=== PATIENT | female | born 1990 | race Two or more races ===

== ENCOUNTER 2016-09-06 04:21 | Observation (INO) | payer MEDICAID ==
--- NOTE | 2016-09-06 04:32 | ER Document Report ---
ED GI/ - General Mode of Arrival: Ambulatory Information source: Patient, [facility] Records TRAVEL OUTSIDE OF THE [place] IN LAST 30 DAYS: Yes COUNTRY TRAVELED TO/FROM: [place] <LIBRADO WILLARD - Last Filed: 09/06/16 08:03> <RASHID MEDINA - Last Filed: 09/06/16 09:28> - General Stated Complaint: BLEEDING Time Seen by Provider: 09/06/16 04:24 Notes: This 25-year-old female patient comes emergency room complaining of sudden onset of heavy vaginal bleeding about 20 minutes prior to arrival. She reports she has had some pelvic cramping off and on for a few days. Cramping began again this evening. She was [facility] the [facility] 2-3 days ago for the cramping and had a negative test. Her last menstrual period started 2 days ago and was on time. (LIBRADO WILLARD) - Related Data Allergies/Adverse Reactions: No Known Allergies Allergy (Verified 03/25/15 04:21) Past Medical History - General Information source: Patient, [facility] Records - Social History Smoking Status: Never Smoker Cigarette use (# per day): No Chew tobacco use (# tins/day): No Smoking Education Provided: No Frequency of alcohol use: Social Drug Abuse: None Occupation: Unemployed Family History: Reviewed & Not Pertinent - Medical History Medical History: Negative Past Surgical History: Reports: Hx Section - x2 - Immunizations Hx Diphtheria, Pertussis, Tetanus Vaccination: Yes <LIBRADO WILLARD - Last Filed: 09/06/16 08:03> Review of Systems - Review of Systems Constitutional: No symptoms reported EENT: No symptoms reported Cardiovascular: No symptoms reported Respiratory: No symptoms reported Gastrointestinal: See HPI Genitourinary: See HPI Female Genitourinary: See HPI Musculoskeletal: No symptoms reported Skin: No symptoms reported Hematologic/Lymphatic: No symptoms reported Neurological/Psychological: No symptoms reported <LIBRADO WILLARD - Last Filed: 09/06/16 08:03> Physical Exam - General General appearance: Alert, Anxious In distress: Moderate - HEENT Head: Normocephalic, Atraumatic Eyes: Normal Pupils: PERRL Neck: Normal - Respiratory Respiratory status: No respiratory distress Breath sounds: Normal - Cardiovascular Rhythm: Regular Heart sounds: Normal auscultation Murmur: No - Abdominal Inspection: Normal Bowel sounds: Normal Tenderness: Tender - Back Back: Normal - Extremities General upper extremity: Normal inspection General lower extremity: Other - Fresh blood had been running down both legs. - Neurological Neuro grossly intact: Yes - Psychological Associated symptoms: Normal affect, Normal mood - Skin Skin Temperature: Warm Skin Moisture: Dry Skin Color: Normal <LIBRADO WILLARD - Last Filed: 09/06/16 08:03> Course - Laboratory Result Diagrams: 09/06/16 04:25 09/06/16 05:15 - Transfer of Care Care transferred to following provider: Dr. Cruz <LIBRADO WILLARD - Last Filed: 09/06/16 08:03> - Laboratory Result Diagrams: 09/06/16 09:03 09/06/16 05:15 - Diagnostic Test Radiology reviewed: Image reviewed, Reports reviewed <RASHID MEDINA - Last Filed: 09/06/16 09:28> - Re-evaluation Re-evalutation: 09/06/16 08:03 I ordered D5 LR fluids due to the patient's low serum CO2 suggesting metabolic acidosis, and slightly low potassium and blood sugar. After this fluid was ordered, the nurse informed me she had received 2-1/2 L of normal saline at this point. I had looked in the orders prior to ordering the D5 LR and did not see where saline had ever been ordered or given. I requested the second half of the third liter of normal saline be stopped and the D5 LR be started. (LIBRADO WILLARD) 09/06/16 09:27 Patient's hemoglobin has dropped down to 7.2, I ordered for transfusion of blood , I spoke with Dr. Nielsen will admit the patient. She did become hypotensive and was given fluids in the meantime. Emergent blood has been ordered ( RASHID MEDINA) - Vital Signs Vital signs: Temp Pulse Resp BP Pulse Ox 16 100/65 100 09/06/16 09:02 09/06/16 09:02 09/06/16 09:02 - Laboratory Laboratory results interpreted by me: 09/06/16 09/06/16 09/06/16 04:25 05:15 05:15 WBC 11.2 H RBC Hgb 11.2 L Hct 34.3 L RDW 15.0 H Plt Count Chloride 113 H Carbon Dioxide 16 L Calcium 7.1 L Alkaline Phosphatase 24 L Total Protein 4.8 L Albumin 2.5 L Beta HCG, Quant 15.05 H Urine Ketones Urine Blood Ur Leukocyte Esterase Crossmatch See Detail 09/06/16 09/06/16 06:21 09:03 WBC RBC 2.53 L Hgb 7.2 L D Hct 21.5 L RDW Plt Count 138 L Chloride Carbon Dioxide Calcium Alkaline Phosphatase Total Protein Albumin Beta HCG, Quant Urine Ketones TRACE H Urine Blood SMALL H Ur Leukocyte Esterase TRACE H Crossmatch - Transfer of Care Notes: 09/06/16 07:41 Patient is pending ultrasound. Repeat Chem-12 will be done after ultrasound. ( LIBRADO WILLARD) Critical Care Note <LIBRADO WILLARD - Last Filed: 09/06/16 08:03> - Critical Care Note Total time excluding time spent on procedures (mins): 33 <RASHID MEDINA - Last Filed: 09/06/16 09:28> - Critical Care Note Comments: 33 minutes of critical care time spent in direct contact evaluating and reevaluating the patient, treating symptoms, reviewing labs and studies and speaking with family and consultants excluding any procedures (RASHID MEDINA ) Discharge <LIBRADO WILLARD - Last Filed: 09/06/16 08:03> - Discharge Admitting Provider: [facility] Unit Admitted: Surgical Floor <RASHID MEDINA - Last Filed: 09/06/16 09:28> - Discharge Clinical Impression: Vaginal bleeding in patient at less than 20 weeks gestation, Pelvic cramping, Hypoalbuminemia, Metabolic acidosis, Acute blood loss anemia Anemia Qualifiers: Anemia type: unspecified type Qualified Code(s): D64.9 - Anemia, unspecified Hypotension Qualifiers: Hypotension type: unspecified hypotension type Qualified Code(s): I95.9 - Hypotension, unspecified Condition: Stable Disposition: ADMITTED INPATIENT Referrals: JAIR BRICE MD [Primary Care Provider] - Follow up as needed
[2016-09-06 04:47] LABS: ABSOLUTE EOSINOPHILS # (AUTO) 0.1 10^3/uL (0.0-0.6); ABSOLUTE LYMPHOCYTES (AUTO) 4.3 10^3/uL (0.5-4.7); ABSOLUTE MONOCYTES (AUTO) 0.8 10^3/uL (0.1-1.4); ABSOLUTE NEUT (AUTO) 6.1 10^3/uL (1.7-8.2); BASOPHILS % (AUTO) 0.2 % (0-2); EOSINOPHILS % (AUTO) 0.5 % (0-6); HEMATOCRIT 34.3 % (36.0-47.0); HEMOGLOBIN 11.2 g/dL (12.0-15.5); HGB HCT DIFFERENCE -0.7; LYMPHOCYTES % (AUTO) 38.2 % (13-45); MEAN CORPUSCULAR HGB CONC 32.5 g/dL (32.0-36.0); MEAN CORPUSCULAR VOLUME 86 fl (80-97); MONOCYTES % (AUTO) 6.9 % (3-13); RED BLOOD COUNT 3.99 10^6/uL (3.72-5.28); SEGMENTED NEUTROPHILS % (AUTO) 54.2 % (42-78); WHITE BLOOD COUNT 11.2 10^3/uL (4.0-10.5)
[2016-09-06 05:46] LABS: ALANINE AMINOTRANSFERASE 21 U/L (9-52); ALBUMIN 2.5 g/dL (3.5-5.0); ALKALINE PHOSPHATASE 24 U/L (38-126); ANION GAP 11 (5-19); ASPARTATE AMINO TRANSFERASE 17 U/L (14-36); BILIRUBIN,DIRECT 0.3 mg/dL (0.0-0.4); BILIRUBIN,TOTAL 0.4 mg/dL (0.2-1.3); BLOOD UREA NITROGEN 8 mg/dL (7-20); CALCIUM 7.1 mg/dL (8.4-10.2); CARBON DIOXIDE 16 mmol/L (22-30); CHLORIDE 113 mmol/L (98-107); CREATININE RESULT 0.52 mg/dL (0.52-1.25); GLUCOSE 76 mg/dL (75-110); POTASSIUM 3.6 mmol/L (3.6-5.0); SODIUM 139.6 mmol/L (137-145); TOTAL PROTEIN 4.8 g/dL (6.3-8.2)
[2016-09-06] MEDS ORDERED: DEXTROSE 5%-LACTATED RINGERS 1,000 ML IV ONE (06:28)
[2016-09-06 06:41] LABS: APPEARANCE,URINE CLEAR; BILIRUBIN,URINE NEGATIVE (NEGATIVE); GLUCOSE, URINE NEGATIVE (NEGATIVE); KETONES,URINE TRACE mg/dL (NEGATIVE); LEUKOCYTE ESTERASE,URINE TRACE (NEGATIVE); NITRITE,URINE NEGATIVE (NEGATIVE); PROTEIN,URINE NEGATIVE (NEGATIVE); UROBILINOGEN,URINE NEGATIVE mg/dL (<2.0)
[2016-09-06 07:50] LABS: ADD ON TESTING BLD IN LAB ACKNOWLEDGE
[2016-09-06] MEDS ORDERED: ONDANSETRON HCL INJ/PF 4 MG/2 ML SDV IV ONE (08:00)
[2016-09-06] MEDS ORDERED: MORPHINE SULFATE 10 MG/ML INJ IV ONE (08:00)
[2016-09-06 08:06] LABS: MAGNESIUM 1.7 mg/dL (1.6-2.3)
[2016-09-06 08:09] LABS: PARTIAL THROMBOPLASTIN TIME 28.7 SEC (23.5-35.8); PROTHROMBIN TIME 15.4 SEC (11.4-15.4)
[2016-09-06 08:10] LABS: FIBRINOGEN 222 mg/dL (209-497)
--- NOTE | 2016-09-06 09:11 | RADIOLOGY REPORT (SQ) ---
EXAM DESCRIPTION: U/S OB TRANSVAGINAL W/O DOP COMPLETED DATE/TIME: 09/06/2016 9:03 am REASON FOR STUDY: pelvic pain, heavy vag bleeding COMPARISON: None. TECHNIQUE: Transvaginal and transabdominal static and realtime grayscale images acquired of the pelv is. Additional selected spectral and color Doppler images recorded. All images stored on PACs. bHC.05 LIMITATIONS: None. FINDINGS: UTERUS: No visualized intrauterine . Thickened heterogeneous endometrium measuri ng 31 mm. RIGHT ADNEXA: Normal ovary with normal vascular flow. No adnexal free fluid. No adnexal masses. LEFT ADNEXA: Normal ovary with normal vascular flow. No adnexal free fluid. No adnexal masses. FREE FLUID: None. OTHER: No other significant finding. IMPRESSION: NO VISUALIZED INTRA- OR EXTRAUTERINE . bHCG LEVEL TOO LOW TO EXPECT VISUALIZATION OF HOWEVER GIVEN THE MARKEDLY THICKENED ENDOMETR IUM AND HISTORY OF ACTIVE BLEEDING FINDINGS ARE CONCERNING FOR FAILED INTRAUTERINE . ECTOPIC CANNOT BE EXCLUDED. FOLLOW-UP ULTRASOUND AND SERIAL BHCG LEVELS STRONGLY RECOMMENDED TO ACCURATELY ASSESS STATU S. TECHNICAL DOCUMENTATION: JOB ID: [id number]- All Rights Reserved
[2016-09-06 09:16] LABS: ABSOLUTE LYMPHOCYTES (AUTO) 1.3 10^3/uL (0.5-4.7); ABSOLUTE MONOCYTES (AUTO) 0.3 10^3/uL (0.1-1.4); ABSOLUTE NEUT (AUTO) 5.8 10^3/uL (1.7-8.2); BASOPHILS % (AUTO) 0.1 % (0-2); EOSINOPHILS % (AUTO) 0.1 % (0-6); HEMATOCRIT 21.5 % (36.0-47.0); HGB HCT DIFFERENCE 0.1; LYMPHOCYTES % (AUTO) 17.6 % (13-45); MEAN CORPUSCULAR HEMOGLOBIN 28.3 pg (27.0-33.4); MEAN CORPUSCULAR HGB CONC 33.3 g/dL (32.0-36.0); MEAN CORPUSCULAR VOLUME 85 fl (80-97); MONOCYTES % (AUTO) 4.4 % (3-13); RED BLOOD COUNT 2.53 10^6/uL (3.72-5.28); SEGMENTED NEUTROPHILS % (AUTO) 77.8 % (42-78); WHITE BLOOD COUNT 7.5 10^3/uL (4.0-10.5)
[2016-09-06 09:20] LABS: HEMOGLOBIN 7.2 g/dL (12.0-15.5)
[2016-09-06] MEDS ORDERED: NORMAL SALINE 250 ML IV PRN ×2 (09:21)
[2016-09-06 09:27] LABS: ALANINE AMINOTRANSFERASE 15 U/L (9-52); ALBUMIN 2.6 g/dL (3.5-5.0); ALKALINE PHOSPHATASE 23 U/L (38-126); ANION GAP 8 (5-19); ASPARTATE AMINO TRANSFERASE 15 U/L (14-36); BILIRUBIN,DIRECT 0.2 mg/dL (0.0-0.4); BILIRUBIN,TOTAL 0.4 mg/dL (0.2-1.3); BLOOD UREA NITROGEN 7 mg/dL (7-20); CALCIUM 7.2 mg/dL (8.4-10.2); CARBON DIOXIDE 19 mmol/L (22-30); CHLORIDE 111 mmol/L (98-107); CREATININE RESULT 0.44 mg/dL (0.52-1.25); GLUCOSE 110 mg/dL (75-110); POTASSIUM 3.8 mmol/L (3.6-5.0); SODIUM 138.2 mmol/L (137-145); TOTAL PROTEIN 4.8 g/dL (6.3-8.2)
--- NOTE | 2016-09-06 10:18 | PDOC CONSULTATION ---
Consultation Consult Date: 09/06/16 Attending physician:: UYEN RIVERA Consult reason:: BHCG of 15. excessive vaginal bleeding with 4 point hgb drop in 5 hours. History of Present Illness Admission Date/PCP: 09/06/16 09:57 JAIR BRICE MD Patient complains of: had cramping and mild bleeding that started 2 days ago. this am began with rapid bleeding with clots and increased cramping. History of Present Illness: JOSIE ANN is a 25 year old female as above Past Medical History LMP: 09/03/2016 Menses: regular Gynecological Infection: No Obstetrical History: none - c/section x 2. PP hemorrhage x 1 with transfusion. Medical termination in January 2016 that resulted in hemorrhage and need for transfusion Social History Information Source: Patient Lives with: Family Smoking Status: Never Smoker Frequency of Alcohol Use: Occasional Hx Recreational Drug Use: No Family History Family History: Reviewed & Not Pertinent Parental Family History Reviewed: Yes Children Family History Reviewed: Yes Sibling(s) Family History Reviewed.: Yes Medication/Allergy Allergies/Adverse Reactions: No Known Allergies Allergy (Verified 03/25/15 04:21) Physical Exam - Physical Exam Vital Signs: Temp Pulse Resp BP Pulse Ox 98 F 15 96/58 L 97 09/06/16 09:59 09/06/16 09:57 09/06/16 09:57 09/06/16 09:57 General appearance: PRESENT: thin, well-developed, well-nourished Head exam: PRESENT: atraumatic Eye exam: PRESENT: conjunctiva pale Vascular exam: PRESENT: pallor GI/Abdominal exam: PRESENT: soft, tenderness - Gynecological Exam Labia: normal Urethra: normal Introitus: normal Perineum: normal Vagina: normal, other - mild/moderate blood. one small clot noted Cervix: normal, other - cervix closed. minimal blood from os noted. no active excessive bleeding Cervix: normal Uterus: normal Adhexa: normal Result Impressions: Obstetrics Ultrasound 09/06/16 06:27 IMPRESSION: NO VISUALIZED INTRA- OR EXTRAUTERINE . bHCG LEVEL TOO LOW TO EXPECT VISUALIZATION OF HOWEVER GIVEN THE MARKEDLY THICKENED ENDOMETRIUM AND HISTORY OF ACTIVE BLEEDING FINDINGS ARE CONCERNING FOR FAILED INTRAUTERINE . ECTOPIC CANNOT BE EXCLUDED. FOLLOW-UP ULTRASOUND AND SERIAL BHCG LEVELS STRONGLY RECOMMENDED TO ACCURATELY ASSESS STATUS. Assessment & Plan - Diagnosis (2) Hypotension Qualifiers: Hypotension type: unspecified hypotension type Qualified Code(s): I95.9 - Hypotension, unspecified - Time Time Spent: 30 to 50 Minutes Critical Time spent with patient: 15-24 minutes Anticipated discharge: Home - Plan Summary Plan Summary: d/w patient at time of exam in ER. If does well with transfusion and bleeding continues to be resolved, will discharge home with follow up in one week in my office. Will arrange for hematology follow up at that time as patient has history of transfusions associated with . This is very likely an early SAB and is resolving.
[2016-09-06 12:21] LABS: ABSOLUTE LYMPHOCYTES (AUTO) 1.8 10^3/uL (0.5-4.7); ABSOLUTE MONOCYTES (AUTO) 0.6 10^3/uL (0.1-1.4); ABSOLUTE NEUT (AUTO) 7.2 10^3/uL (1.7-8.2); BASOPHILS % (AUTO) 0.3 % (0-2); EOSINOPHILS % (AUTO) 0.1 % (0-6); HEMATOCRIT 32.3 % (36.0-47.0); HGB HCT DIFFERENCE -0.2; LYMPHOCYTES % (AUTO) 18.8 % (13-45); MEAN CORPUSCULAR HEMOGLOBIN 29.5 pg (27.0-33.4); MEAN CORPUSCULAR HGB CONC 33.3 g/dL (32.0-36.0); MEAN CORPUSCULAR VOLUME 88 fl (80-97); MONOCYTES % (AUTO) 6.2 % (3-13); RED BLOOD COUNT 3.65 10^6/uL (3.72-5.28); RED CELL DISTRIBUTION WIDTH 14.7 % (11.5-14.0); SEGMENTED NEUTROPHILS % (AUTO) 74.6 % (42-78); WHITE BLOOD COUNT 9.6 10^3/uL (4.0-10.5)
[2016-09-06 12:27] LABS: HEMOGLOBIN 10.7 g/dL (12.0-15.5)
[2016-09-06 12:35] LABS: ALANINE AMINOTRANSFERASE 25 U/L (9-52); ALBUMIN 2.3 g/dL (3.5-5.0); ALKALINE PHOSPHATASE 22 U/L (38-126); ANION GAP 6 (5-19); ASPARTATE AMINO TRANSFERASE 14 U/L (14-36); BILIRUBIN,DIRECT 0.1 mg/dL (0.0-0.4); BILIRUBIN,TOTAL 0.9 mg/dL (0.2-1.3); BLOOD UREA NITROGEN 4 mg/dL (7-20); CARBON DIOXIDE 17 mmol/L (22-30); CHLORIDE 116 mmol/L (98-107); CREATININE RESULT 0.35 mg/dL (0.52-1.25); GLUCOSE 76 mg/dL (75-110); POTASSIUM 3.5 mmol/L (3.6-5.0); SODIUM 138.7 mmol/L (137-145); TOTAL PROTEIN 4.5 g/dL (6.3-8.2)
[2016-09-06 12:43] LABS: CALCIUM 6.2 mg/dL (8.4-10.2)
--- NOTE | 2016-09-06 14:33 | PDOC H&P ---
History of Present Illness Admission Date/PCP: 09/06/16 09:57 JAIR BRICE MD Patient complains of: vaginal bleeding with excessive blood loss History of Present Illness: JOSIE ANN is a 25 year old female as above. Pls see earlier consult note for details Past Medical History LMP: 09/03/2016 Menses: regular Gynecological Infection: No Obstetrical History: none - c/section x 2. PP hemorrhage x 1 with transfusion. Medical termination in January 2016 that resulted in hemorrhage and need for transfusion Past Surgical History Past Surgical History: Reports: Section - x2 Social History Lives with: Family Smoking Status: Never Smoker Frequency of Alcohol Use: Occasional Hx Recreational Drug Use: No Family History Family History: Reviewed & Not Pertinent Parental Family History Reviewed: Yes Children Family History Reviewed: Yes Sibling(s) Family History Reviewed.: Yes Medication/Allergy Home Medications: No Home Medications 09/06/16 Allergies/Adverse Reactions: No Known Allergies Allergy (Verified 03/25/15 04:21) Physical Exam - Physical Exam Vital Signs: Temp Pulse Resp BP Pulse Ox 98.8 F 21 H 102/67 100 09/06/16 11:03 09/06/16 14:15 09/06/16 14:15 09/06/16 14:15 Intake & Output 09/05/16 09/06/16 09/07/16 06:59 06:59 06:59 Intake Total 600 Balance 600 - Gynecological Exam Labia: normal Urethra: normal Introitus: normal Perineum: normal Vagina: normal, other - mild/moderate blood. one small clot noted Cervix: normal, other - cervix closed. minimal blood from os noted. no active excessive bleeding Cervix: normal Uterus: normal Adhexa: normal Result Laboratory Results: 09/06/16 12:02 09/06/16 12:02 09/06/16 09/06/16 12:02 12:02 WBC 9.6 RBC 3.65 L Hgb 10.7 L D Hct 32.3 L MCV 88 MCH 29.5 MCHC 33.3 RDW 14.7 H Plt Count 125 L Seg Neutrophils % 74.6 Lymphocytes % 18.8 Monocytes % 6.2 Eosinophils % 0.1 Basophils % 0.3 Absolute Neutrophils 7.2 Absolute Lymphocytes 1.8 Absolute Monocytes 0.6 Absolute Eosinophils 0.0 Absolute Basophils 0.0 Sodium 138.7 Potassium 3.5 L Chloride 116 H Carbon Dioxide 17 L Anion Gap 6 BUN 4 L Creatinine 0.35 L Est GFR ( Amer) > 60 Est GFR (Non-Af Amer) > 60 Glucose 76 Calcium 6.2 L* Total Bilirubin 0.9 AST 14 ALT 25 Alkaline Phosphatase 22 L Total Protein 4.5 L Albumin 2.3 L Impressions: Obstetrics Ultrasound 09/06/16 06:27 IMPRESSION: NO VISUALIZED INTRA- OR EXTRAUTERINE . bHCG LEVEL TOO LOW TO EXPECT VISUALIZATION OF HOWEVER GIVEN THE MARKEDLY THICKENED ENDOMETRIUM AND HISTORY OF ACTIVE BLEEDING FINDINGS ARE CONCERNING FOR FAILED INTRAUTERINE . ECTOPIC CANNOT BE EXCLUDED. FOLLOW-UP ULTRASOUND AND SERIAL BHCG LEVELS STRONGLY RECOMMENDED TO ACCURATELY ASSESS STATUS. Assessment & Plan - Diagnosis (2) Hypotension Qualifiers: Hypotension type: unspecified hypotension type Qualified Code(s): I95.9 - Hypotension, unspecified - Time Time Spent: 30 to 50 Minutes Critical Time spent with patient: 15-24 minutes Medications reviewed and adjusted accordingly: Yes Anticipated discharge: Home Within: within 36 hours - admit for observation and possible additional transfusion
[2016-09-06] MEDS ORDERED: CALCIUM GLUCONATE 1000 MG/10 ML INJ IV ONE (14:51)
[2016-09-06] MEDS ORDERED: ONDANSETRON HCL INJ/PF 4 MG/2 ML SDV IV PRN (15:16)
--- NOTE | 2016-09-06 15:25 | PDOC H&P ---
History of Present Illness Admission Date/PCP: 09/06/16 09:57 JAIR BRICE MD History of Present Illness: JOSIE ANN is a 25 year old female who presented to the ER with severe vaginal bleeding. Patient hgb dropped from 11.2 to 7.2 resulting in need for transfusion. patient reports requiring D+C and transfusion after a chemical in december of this past year. Patient was unaware of current . She reports having had a recent pap smear at the health department and was told she had an infection and given an antibiotic twice daily for one week. She is unsure of the name of the antibiotic. Patient reported having vaginal discharge at that time. Currently reports on-going bleeding but states it isn't as heavy as previous. I am consulted by Dr. Nielsen of OBGYN for electrolyte abnormalities. Past Medical History Hematology: Reports: Anemia - currently, Hgb 8.1, Hct 25.1 (results faxed to office, shown to Anesth.) Past Surgical History Past Surgical History: Reports: Section - x2, Other - D+C Social History Lives with: Family Smoking Status: Never Smoker Frequency of Alcohol Use: Occasional Hx Recreational Drug Use: No Hx Prescription Drug Abuse: No - Advance Directive Resuscitation Status: Full Code Surrogate healthcare decision maker:: mother Family History Family History: DM Parental Family History Reviewed: Yes Children Family History Reviewed: Yes Sibling(s) Family History Reviewed.: Yes Medication/Allergy Home Medications: No Home Medications 09/06/16 Allergies/Adverse Reactions: No Known Allergies Allergy (Verified 03/25/15 04:21) Review of Systems Constitutional: ABSENT: chills, fever(s), headache(s), weight gain, weight loss Eyes: ABSENT: visual disturbances Ears: ABSENT: hearing changes Cardiovascular: ABSENT: chest pain, dyspnea on exertion, edema, orthropnea, palpitations Respiratory: ABSENT: cough, hemoptysis Gastrointestinal: ABSENT: abdominal pain, constipation, diarrhea, hematemesis, hematochezia, nausea, vomiting Genitourinary: PRESENT: other - abnormal vaginal bleeding. ABSENT: dysuria, hematuria Musculoskeletal: ABSENT: joint swelling Integumentary: ABSENT: rash, wounds Neurological: ABSENT: abnormal gait, abnormal speech, confusion, dizziness, focal weakness, syncope Psychiatric: ABSENT: anxiety, depression, homidical ideation, suicidal ideation Endocrine: ABSENT: cold intolerance, heat intolerance, polydipsia, polyuria Hematologic/Lymphatic: ABSENT: easy bleeding, easy bruising Physical Exam Vital Signs: Temp Pulse Resp BP Pulse Ox 98.8 F 18 103/59 L 100 09/06/16 11:03 09/06/16 14:30 09/06/16 14:30 09/06/16 14:30 Intake & Output 09/05/16 09/06/16 09/07/16 06:59 06:59 06:59 Intake Total 600 Balance 600 General appearance: PRESENT: mild distress, thin, well-developed, well-nourished Head exam: PRESENT: atraumatic, normocephalic Eye exam: PRESENT: conjunctiva pink, EOMI, PERRLA. ABSENT: scleral icterus Ear exam: PRESENT: normal external ear exam Mouth exam: PRESENT: dry mucosa, tongue midline Neck exam: ABSENT: JVD, lymphadenopathy, thyromegaly, tracheal deviation Respiratory exam: PRESENT: clear to auscultation [place]. ABSENT: rales, rhonchi, wheezes Cardiovascular exam: PRESENT: RRR. ABSENT: diastolic murmur, rubs, systolic murmur Pulses: PRESENT: normal dorsalis pedis pul Vascular exam: PRESENT: normal capillary refill GI/Abdominal exam: PRESENT: normal bowel sounds, soft. ABSENT: distended, guarding, mass, organolmegaly, rebound, tenderness Rectal exam: PRESENT: deferred Extremities exam: PRESENT: full ROM. ABSENT: calf tenderness, clubbing, pedal edema Neurological exam: PRESENT: alert, awake, oriented to person, oriented to place , oriented to time, oriented to situation, CN II-XII grossly intact. ABSENT: motor sensory deficit Psychiatric exam: PRESENT: appropriate affect, normal mood. ABSENT: homicidal ideation, suicidal ideation Skin exam: PRESENT: dry, intact, warm. ABSENT: cyanosis, rash Results Laboratory Results: 09/06/16 12:02 09/06/16 12:02 09/06/16 09/06/16 09/06/16 12:02 12:02 14:37 WBC 9.6 RBC 3.65 L Hgb 10.7 L D Hct 32.3 L MCV 88 MCH 29.5 MCHC 33.3 RDW 14.7 H Plt Count 125 L Seg Neutrophils % 74.6 Lymphocytes % 18.8 Monocytes % 6.2 Eosinophils % 0.1 Basophils % 0.3 Absolute Neutrophils 7.2 Absolute Lymphocytes 1.8 Absolute Monocytes 0.6 Absolute Eosinophils 0.0 Absolute Basophils 0.0 Sodium 138.7 Potassium 3.5 L Chloride 116 H Carbon Dioxide 17 L Anion Gap 6 BUN 4 L Creatinine 0.35 L Est GFR ( Amer) > 60 Est GFR (Non-Af Amer) > 60 Glucose 76 Calcium 6.2 L* Ionized Calcium Olga 1.10 L Total Bilirubin 0.9 AST 14 ALT 25 Alkaline Phosphatase 22 L Total Protein 4.5 L Albumin 2.3 L Impressions: Obstetrics Ultrasound 09/06/16 06:27 IMPRESSION: NO VISUALIZED INTRA- OR EXTRAUTERINE . bHCG LEVEL TOO LOW TO EXPECT VISUALIZATION OF HOWEVER GIVEN THE MARKEDLY THICKENED ENDOMETRIUM AND HISTORY OF ACTIVE BLEEDING FINDINGS ARE CONCERNING FOR FAILED INTRAUTERINE . ECTOPIC CANNOT BE EXCLUDED. FOLLOW-UP ULTRASOUND AND SERIAL BHCG LEVELS STRONGLY RECOMMENDED TO ACCURATELY ASSESS STATUS. Status: Imported from PACS Assessment & Plan - Diagnosis (1) Vaginal bleeding in patient at less than 20 weeks gestation Is this a current diagnosis for this admission?: YesPlan: Defer to OBGYN for all conditions relating to this. Recommend hematology evaluation. (2) Acute blood loss anemia Is this a current diagnosis for this admission?: YesPlan: Recheck cbc and consider repeat transfusion if HGB less than 8 (3) Anemia Qualifiers: Anemia type: unspecified type Qualified Code(s): D64.9 - Anemia, unspecified Is this a current diagnosis for this admission?: YesPlan: Recommend patient have an outpatient hematology evaluation. At this time, iron studies are of little value given that she has received several units of blood. (4) Hypoalbuminemia Is this a current diagnosis for this admission?: YesPlan: Patient denies any difficulties with her bowels. Reports normal bowel movement yesterday without hematochezia or melena. Patient does not have a protein- losing enteropathy, no known history of HIV or hepatitis, but I do recommend that these be checked, and patient has a normal UA essentially ruling out nephropathy. Patient hypoalbuminemia is likely due to poor nutrition. (5) Hypotension Qualifiers: Hypotension type: unspecified hypotension type Qualified Code(s): I95.9 - Hypotension, unspecified Is this a current diagnosis for this admission?: YesPlan: Give 3L LR bolus. (6) Metabolic acidosis Is this a current diagnosis for this admission?: YesPlan: Check lactate. Concern for sepsis in patient with previously reported vaginal infection. (7) Hypocalcemia Is this a current diagnosis for this admission?: YesPlan: Minor hypocalcemia likely secondary to administration of blood with citrate. Give calcium gluconate. (8) Hypokalemia Is this a current diagnosis for this admission?: YesPlan: Give 40 mEq p.o. 1 and check magnesium. Recommend repeat BMP prior to discharge. - Time Time Spent: 30 to 50 Minutes Medications reviewed and adjusted accordingly: Yes - Plan Summary Plan Summary: Discussed this case with Dr. Nielsen of [facility]. At this time, I have no clear reason for patient's vaginal bleeding, and defer evaluation and treatment of this to the [facility] team. Patient's minor electrolyte abnormalities are easily corrected and once BMP is repeated and demonstrates resolution, the medicine team will sign off. We do appreciate this most interesting consult.
[2016-09-06] MEDS ORDERED: RINGERS SOLUTION,LACTATED 3,000 ML IV ONE (15:30)
[2016-09-06] MEDS ORDERED: POTASSIUM CHLORIDE 10 MEQ TABLET.SA PO ONE (15:45)
[2016-09-06] MEDS ORDERED: CALCIUM GLUCONATE 2,000 MG in DEXTROSE 5%-WATER 100 ML IV ONE (16:00)
[2016-09-06] MEDS: MAGNESIUM SULFATE/D5W 100 ML IV SCH ×2 (16:11→17:49)
[2016-09-06 17:43] LABS: HEMATOCRIT 28.2 % (36.0-47.0); HEMOGLOBIN 9.4 g/dL (12.0-15.5); MEAN CORPUSCULAR HGB CONC 33.5 g/dL (32.0-36.0); MEAN CORPUSCULAR VOLUME 87 fl (80-97); RED BLOOD COUNT 3.25 10^6/uL (3.72-5.28); RED CELL DISTRIBUTION WIDTH 14.6 % (11.5-14.0); WHITE BLOOD COUNT 8.1 10^3/uL (4.0-10.5)
[2016-09-06 17:48] LABS: PROTHROMBIN TIME 19.4 SEC (11.4-15.4)
[2016-09-06 17:49] LABS: PARTIAL THROMBOPLASTIN TIME 38.4 SEC (23.5-35.8)
[2016-09-06 18:15] LABS: FIBRINOGEN 121 mg/dL (209-497)
[2016-09-06 22:54] LABS: URINE BARBITURATES SCREEN NEGATIVE; URINE METHADONE SCREEN NEGATIVE; URINE OPIATES LOW NEGATIVE; URINE PHENCYCLIDINE SCREEN NEGATIVE
[2016-09-07 00:34] LABS: HEMOGLOBIN 10.5 g/dL (12.0-15.5); HGB HCT DIFFERENCE 0.5; MEAN CORPUSCULAR HEMOGLOBIN 29.3 pg (27.0-33.4); MEAN CORPUSCULAR HGB CONC 33.8 g/dL (32.0-36.0); MEAN CORPUSCULAR VOLUME 87 fl (80-97); RED BLOOD COUNT 3.57 10^6/uL (3.72-5.28); RED CELL DISTRIBUTION WIDTH 14.3 % (11.5-14.0); WHITE BLOOD COUNT 9.2 10^3/uL (4.0-10.5)
[2016-09-07 06:57] LABS: HEMATOCRIT 29.4 % (36.0-47.0); HGB HCT DIFFERENCE 0.6; MEAN CORPUSCULAR HEMOGLOBIN 29.5 pg (27.0-33.4); MEAN CORPUSCULAR HGB CONC 34.1 g/dL (32.0-36.0); MEAN CORPUSCULAR VOLUME 87 fl (80-97); RED BLOOD COUNT 3.39 10^6/uL (3.72-5.28); RED CELL DISTRIBUTION WIDTH 14.4 % (11.5-14.0); WHITE BLOOD COUNT 8.2 10^3/uL (4.0-10.5)
[2016-09-07 08:45] VITALS: BP 102/59
--- NOTE | 2016-09-07 12:48 | DISCHARGE SUMMARY E ---
Discharge Summary NAME: JOSIE ANN : 1990 AGE: 25Y ADMITTED: 09/06/2016 DISCHARGED: 09/07/2016 FINAL DIAGNOSES: 1. Miscarriage. 2. Anemia of acute blood loss. HISTORY: The patient is a 25-year-old female presenting the ER yesterday with heavy vaginal bleeding and a precipitous drop in her hemoglobin and hematocrit. She was given 2 units of blood and monitored overnight. This morning she is doing well, afebrile, vital signs stable. She is no longer lightheaded. Her bleeding has stopped. Her test was low positive at 15; it appears she most likely had a miscarriage with bleeding and hypotension. She is now doing well. She will be discharged to home. I have asked her to follow up later in the week for followup and repeat test to make sure it goes to 0. 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 CONDITION ON DISCHARGE: Good. DICTATING PHYSICIAN: JAIR BRICE M.D. [id number] PHY#: [id number] ID: [id number] JOB#: [id number] ACCT: [id number] cc:JAIR BRICE M.D. >
== END 2016-09-07 12:25 | disposition home or self-care (01) ==
LOC: ER 04:21 → INTOOBSV 09:57 → EH 09:57 → 2N 15:15
PROVIDERS: ADMIT Obstetrics & Gynecology; ATTEND Obstetrics & Gynecology
PROC: 30233N1 Transfusion of Nonautologous Red Blood Cells into Peripheral Vein, Percutaneous Approach (ICD-10-PCS; principal; 2016-09-06)
DX: O03.6 Delayed or excessive hemorrhage following complete or unspecified spontaneous abortion (principal); D62 Acute posthemorrhagic anemia; O03.89 Complete or unspecified spontaneous abortion with other complications; I95.9 Hypotension, unspecified; E88.09 Other disorders of plasma-protein metabolism, not elsewhere classified; E87.2 Acidosis; E83.51 Hypocalcemia; E87.6 Hypokalemia; Z98.890 Other specified postprocedural states
CPT/HCPCS: 99291; 96375; 96365; 86900; 86901; 36415 ×2; 36430; 86850; 84702; 83735; 84443; 85025; 85027 ×2; 85384; 85362; 85610; 85730; 80053; 81001; 80307; 86920; 83605; 82330; 76817; G0378 ×3; P9016; J0610; J2270; J3475; J2405; J7050; J7120

== ENCOUNTER 2017-02-21 22:16 | Emergency (ER) | payer OTHER ==
[2017-02-21 22:26] VITALS: BP 104/65
[2017-02-21] MEDS ORDERED: CYCLOBENZAPRINE HCL 10 MG TABLET PO ONE (22:37)
[2017-02-21] MEDS ORDERED: IBUPROFEN 800 MG TABLET PO ONE (22:37)
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
== END 2017-02-22 00:15 | disposition home or self-care (01) ==
LOC: ER 22:16
DX: M54.2 Cervicalgia (principal); M25.519 Pain in unspecified shoulder; R07.89 Other chest pain; V87.7XXA Person injured in collision between other specified motor vehicles (traffic), initial encounter
CPT/HCPCS: 72050; 99284

== ENCOUNTER 2018-05-25 23:37 | Emergency (ER) | payer OTHER ==
[2018-05-26] MEDS ORDERED: ONDANSETRON 4 MG TAB.RAPDIS PO ONE (01:45)
--- NOTE | 2018-05-26 01:46 | ER Document Report ---
ED Medical Screen (RME) - General Chief Complaint: Abdominal Pain Stated Complaint: ABDOMINAL PAIN Time Seen by Provider: 05/26/18 01:44 Notes: 27-year-old female, at 4-5 weeks gestation last menstrual period, chief complaint of vomiting, abdominal pain, cramping, vaginal bleeding. Denies fevers. Denies any surgeries or diagnosed medical problems. TRAVEL OUTSIDE OF THE [place] IN LAST 30 DAYS: No COUNTRY TRAVELED TO/FROM: [place] - Related Data Allergies/Adverse Reactions: No Known Allergies Allergy (Verified 02/21/17 22:20) Past Medical History Renal/ Medical History: Denies: Hx Peritoneal Dialysis Past Surgical History: Reports: Hx Section - x2, Other - D+C - Immunizations Hx Diphtheria, Pertussis, Tetanus Vaccination: Yes Physical Exam - Vital signs Vitals: Temp Pulse Resp BP Pulse Ox 98.5 F 71 14 106/61 100 05/25/18 23:51 05/25/18 23:51 05/25/18 23:51 05/25/18 23:51 05/25/18 23:51 - Abdominal Tenderness: Tender - Mild generalized abdominal tenderness, nonspecific, no guarding Course - Vital Signs Vital signs: Temp Pulse Resp BP Pulse Ox 98.5 F 71 14 106/61 100 05/25/18 23:51 05/25/18 23:51 05/25/18 23:51 05/25/18 23:51 05/25/18 23:51
--- NOTE | 2018-05-26 03:26 | RADIOLOGY REPORT (SQ) ---
CLINICAL HISTORY: bleeding, pain, 1st trimester COMPARISON: None. TECHNIQUE: US TRANSVAGINAL on 05/26/2018 1:44 AM CDT FINDINGS: Cervix measures 3 cm and is closed. Uterus measures 11.0 cm. There are two probable gestational sacs. The gestational sac A appears empty measuring 3.5 cm corresponding to eight weeks five days. No pole or yolk sac is noted. Gestational sac B contains a yolk sac and a pole measuring 1.1 cm corresponding to seven weeks two days. heart rate is 127 bpm. Left ovary is not seen. Right ovary measures 4.7 x 1.5 x 1.4 cm. IMPRESSION: At least one single live intrauterine gestation measuring seven weeks two days with a heart rate of 127 bpm. Second possible gestational sac appears empty.
[2018-05-26] MEDS ORDERED: NORMAL SALINE 1000 ML 1,000 ML IV ONE (04:39)
[2018-05-26] MEDS ORDERED: ONDANSETRON HCL INJ/PF 4 MG/2 ML SDV IV ONE (04:39)
--- NOTE | 2018-05-26 04:39 | ER Document Report ---
ED GI/ - General Chief Complaint: Abdominal Pain Stated Complaint: ABDOMINAL PAIN Time Seen by Provider: 05/26/18 01:44 Primary Care Provider: [facility] [Provider Group] - [facility] up as [facility]AL [facility] - Follow up as needed Notes: Patient is a 27-year-old female, at 4-5 weeks gestation last menstrual period, chief complaint of vomiting, abdominal pain, cramping, vaginal bleeding. She states for the past few days she has vomited a lot more and has had trouble keeping things down. She denies any particular areas of pain at this time. Denies fevers. Denies any surgeries or diagnosed medical problems. TRAVEL OUTSIDE OF THE [place] IN LAST 30 DAYS: No COUNTRY TRAVELED TO/FROM: [place] - Related Data Allergies/Adverse Reactions: No Known Allergies Allergy (Verified 05/26/18 05:04) Past Medical History - General Information source: Patient - Social History Smoking Status: Never Smoker Frequency of alcohol use: None Drug Abuse: None Lives with: Family Family History: DM Renal/ Medical History: Denies: Hx Peritoneal Dialysis Past Surgical History: Reports: Hx Section - x2, Other - D+C - Immunizations Hx Diphtheria, Pertussis, Tetanus Vaccination: Yes Review of Systems - Review of Systems Constitutional: No symptoms reported EENT: No symptoms reported Cardiovascular: No symptoms reported Respiratory: No symptoms reported Gastrointestinal: See HPI Genitourinary: See HPI Female Genitourinary: See HPI Musculoskeletal: No symptoms reported Skin: No symptoms reported Hematologic/Lymphatic: No symptoms reported Neurological/Psychological: No symptoms reported Physical Exam - Vital signs Vitals: Temp Pulse Resp BP Pulse Ox 98.5 F 71 14 106/61 100 05/25/18 23:51 05/25/18 23:51 05/25/18 23:51 05/25/18 23:51 05/25/18 23:51 - Notes Notes: GENERAL: Alert, interacts well. No acute distress. HEAD: Normocephalic, atraumatic. EYES: Pupils equal, round, and reactive to light. Extraocular movements intact. ENT: Oral mucosa are dry, tongue midline. Oropharynx unremarkable. Airway patent. Nares patent, no nasal septal hematoma, TM's intact. NECK: Full range of motion. Supple. Trachea midline. LUNGS: Clear to auscultation bilaterally, no wheezes, rales, or rhonchi. No respiratory distress. HEART: Regular rate and rhythm. No murmur ABDOMEN: Soft, non-tender. Non-distended. Bowel sounds present in all 4 qu adrants. GENITOURINARY: Deferred EXTREMITIES: Moves all 4 extremities spontaneously. No edema, normal radial and dorsalis pedis pulses bilaterally. No cyanosis. BACK: no cervical, thoracic, lumbar midline tenderness. No saddle anesthesia, normal distal neurovascular exam. NEUROLOGICAL: Alert and oriented x3. Normal speech. [cranial nerves II through XII grossly intact]. PSYCH: Normal affect, normal mood. SKIN: Warm, dry, normal turgor. No rashes or lesions noted. Course - Re-evaluation Re-evalutation: Patient's abdomen is soft and benign. She is not in distress, she does have very dry mucous membranes. Given IV fluids. After Zofran and IV fluids, she states she feels better, she did tolerate p.o. fluids without any difficulty. CBC without leukocytosis, borderline mild normocytic anemia. Chemistry generally unremarkable. Urinalysis shows ketones and elevated specific gravity. RhoGam is not indicated. HCG is very elevated. Ultrasound showing 2 gestational sacs, only one twin is visualized, visualized when does have a heartbeat. Patient is not bleeding currently, she has no current pain. Discussed results with patient, provided with a copy of her results, discussed treatment options. Patient requesting Zofran at home, she has had good success with this in the past. Discussed follow-up and return prec autions in detail. Patient states understanding and agreement. - Vital Signs Vital signs: Temp Pulse Resp BP Pulse Ox 98.6 F 71 20 92/64 L 100 05/26/18 07:57 05/26/18 07:57 05/26/18 04:30 05/26/18 07:57 05/26/18 07:57 - Laboratory Result Diagrams: 05/26/18 04:50 05/26/18 07:00 Laboratory results interpreted by me: 05/26/18 05/26/18 05/26/18 04:50 07:00 07:10 Hgb 11.3 L Hct 32.7 L Sodium 136.5 L BUN 6 L Creatinine 0.36 L AST 13 L Alkaline Phosphatase 31 L Total Protein 5.9 L Albumin 3.2 L Beta HCG, Quant 571592.00 H Urine Ketones 80 H Urine Urobilinogen 2.0 H Ur Leukocyte Esterase TRACE H Urine Ascorbic Acid 40 H Discharge - Discharge Clinical Impression: Vomiting affecting , Dehydration, Vaginal bleeding affecting early Condition: Stable Disposition: HOME, SELF-CARE Additional Instructions: Your workup shows dehydration, you have been rehydrated, continue rehydration at home. Take Pepcid and Zofran as prescribed for your symptoms, start with clear fluids and bland food, progress to normal diet. Because of the vaginal bleeding I recommend you avoid significant physical activity or sexual intercourse for 1 week. Follow-up with [facility] the [facility] and then [facility]. Return if you worsen including severe abdominal pain, uncontrolled vomiting, fever, heavy bleeding, passing out, or any other concerning or worsening symptoms. Prescriptions: Famotidine [Pepcid 20 mg Tablet] 20 mg PO BID #20 tablet Ondansetron [Zofran Odt 4 mg Tablet] 1 - 2 tab PO Q4H PRN #20 tab.rapdis PRN Reason: For Nausea/Vomiting [facility] - Follow up as needed [facility] [Provider Group] - Follow up as needed
[2018-05-26 05:11] LABS: ABSOLUTE LYMPHOCYTES (AUTO) 2.5 10^3/uL (0.5-4.7); ABSOLUTE MONOCYTES (AUTO) 0.6 10^3/uL (0.1-1.4); ABSOLUTE NEUT (AUTO) 4.6 10^3/uL (1.7-8.2); BASOPHILS % (AUTO) 0.3 % (0-2); EOSINOPHILS % (AUTO) 0.4 % (0-6); HEMATOCRIT 32.7 % (36.0-47.0); HEMOGLOBIN 11.3 g/dL (12.0-15.5); LYMPHOCYTES % (AUTO) 31.9 % (13-45); MEAN CORPUSCULAR HGB CONC 34.4 g/dL (32.0-36.0); MEAN CORPUSCULAR VOLUME 84 fl (80-97); MONOCYTES % (AUTO) 7.8 % (3-13); PLATELET COUNT 190 10^3/uL (150-450); RED BLOOD COUNT 3.88 10^6/uL (3.72-5.28); RED CELL DISTRIBUTION WIDTH 13.7 % (11.5-14.0); SEGMENTED NEUTROPHILS % (AUTO) 59.6 % (42-78); TOTAL CELLS COUNTED % (AUTO) 100 %; WHITE BLOOD COUNT 7.8 10^3/uL (4.0-10.5)
[2018-05-26 07:25] LABS: ALANINE AMINOTRANSFERASE 18 U/L (9-52); ALBUMIN 3.2 g/dL (3.5-5.0); ALKALINE PHOSPHATASE 31 U/L (38-126); ANION GAP 8 (5-19); ASPARTATE AMINO TRANSFERASE 13 U/L (14-36); BILIRUBIN,DIRECT 0.2 mg/dL (0.0-0.4); BILIRUBIN,TOTAL 0.3 mg/dL (0.2-1.3); BLOOD UREA NITROGEN 6 mg/dL (7-20); CALCIUM 8.7 mg/dL (8.4-10.2); CARBON DIOXIDE 22 mmol/L (22-30); CHLORIDE 107 mmol/L (98-107); GLUCOSE 87 mg/dL (75-110); POTASSIUM 3.8 mmol/L (3.6-5.0); SODIUM 136.5 mmol/L (137-145); TOTAL PROTEIN 5.9 g/dL (6.3-8.2)
[2018-05-26 07:40] LABS: APPEARANCE,URINE CLEAR; BILIRUBIN,URINE NEGATIVE (NEGATIVE); COLOR,URINE YELLOW; GLUCOSE, URINE NEGATIVE (NEGATIVE); KETONES,URINE 80 mg/dL (NEGATIVE); LEUKOCYTE ESTERASE,URINE TRACE (NEGATIVE); NITRITE,URINE NEGATIVE (NEGATIVE); PROTEIN,URINE NEGATIVE (NEGATIVE); URINE SPECIFIC GRAVITY 1.028
[2018-05-26 08:17] VITALS: BP 92/64
== END 2018-05-26 08:17 | disposition home or self-care (01) ==
LOC: ER 23:37
DX: O21.9 Vomiting of pregnancy, unspecified (principal); E86.0 Dehydration; O20.9 Hemorrhage in early pregnancy, unspecified; Z3A.01 Less than 8 weeks gestation of pregnancy
CPT/HCPCS: 99283; 96361; 96374; 86900; 86901; 36415; 84702; 85025; 80053; 81001; 76817; 93976; J2405; J7030